=== PATIENT | female | born 1995 | race Caucasian/White ===

== ENCOUNTER 2019-08-11 14:01 | Outpatient (CLI) | payer OTHER ==
[2019-08-11 14:30] LABS: BASOPHILS % (AUTO) 0.3 %; EOSINOPHILS # (AUTO) 0.3 10^3/uL (0.0-0.7); EOSINOPHILS % (AUTO) 3.5 %; HGB - HEMOGLOBIN 13.6 g/dL (12.0-16.0); LYMPHOCYTES # (AUTO) 1.7 10^3/uL (1.5-3.5); LYMPHOCYTES % (AUTO) 20.2 %; MEAN CORPUSCULAR HEMOGLOBIN 28.6 pg (27.0-31.0); MEAN CORPUSCULAR HGB CONC 32.8 g/dL (32.0-36.0); MEAN CORPUSCULAR VOLUME 87.2 fL (81.0-99.0); MEAN PLATELET VOLUME 9.3 fL (7.9-10.8); MONOCYTES % (AUTO) 11.4 %; NEUTROPHILS # (AUTO) 5.5 10^3/uL (1.5-6.6); PLT - PLATELET COUNT 297 10^3/uL (130-450); RED BLOOD COUNT 4.76 10^6/uL (4.20-5.40); RED CELL DISTRIBUTION WIDTH 14.2 % (12.0-15.0); WHITE BLOOD COUNT 8.6 x10^3/uL (4.8-10.8)
== END 2019-08-11 14:02 | disposition home or self-care (01) ==
LOC: LAB 14:01
PROVIDERS: ATTEND Obstetrics & Gynecology
DX: Z01.812 Encounter for preprocedural laboratory examination (principal); D27.1 Benign neoplasm of left ovary
CPT/HCPCS: 36415; 85025; 86850; 86900; 86901

== ENCOUNTER 2019-08-13 12:36 | Day surgery (SDC) | payer OTHER ==
[2019-08-13] MEDS ORDERED: GLYCOPYRROLATE 1 MG/5 ML VIAL IVP ONE (12:37)
[2019-08-13] MEDS ORDERED: MIDAZOLAM 2 MG/2 ML VIAL IVP ONE (12:37)
[2019-08-13] MEDS ORDERED: DEXAMETHASONE 4 MG/ML VIAL IVP ONE (12:37)
[2019-08-13] MEDS ORDERED: NEOSTIGMINE 1 MG/1 ML 10 ML MDV IVP ONE (12:37)
[2019-08-13] MEDS ORDERED: KETOROLAC 30 MG/ML VIAL IVP ONE (12:37)
[2019-08-13] MEDS ORDERED: PROPOFOL 200 MG/20 ML VIAL IVP ONE (12:37)
[2019-08-13] MEDS ORDERED: ROCURONIUM 50 MG/5 ML VIAL IVP ONE (12:37)
[2019-08-13] MEDS ORDERED: LACTATED RINGERS 1,000 ML IV ONE ×2 (12:53→15:09)
--- NOTE | 2019-08-13 13:25 | ANESTHESIA ---
Pre-Anesthesia VS, & Labs - Diagnosis left dermoid cyst - Procedure laparoscopic left or right ovarian cystectomy Vital Signs: Temp Pulse Resp BP Pulse Ox 36.9 C 78 16 119/81 H 95 08/13/19 12:57 08/13/19 12:57 08/13/19 12:57 08/13/19 12:57 08/13/19 12:57 Height 5 ft 3 in Weight (kg) 80.6 kg - NPO >8 hours - Is Patient ?: No Home Medications and Allergies Home Medications: Ambulatory Orders Albuterol Sulfate [Albuterol Sulfate Hfa] 8.5 gm IH PRN 07/22/19 Desogestrel-Ethinyl Estradiol [Desogest-Eth Estra 0.15-0.03MG] 1 each PO 07/22/19 Fluticasone/Salmeterol [Advair 250-50 Diskus] 1 each IH BID 07/22/19 Loratadine [Claritin] 10 mg PO 07/22/19 Montelukast [Singulair] 10 mg PO QPM 07/22/19 Spironolactone 25 mg PO 07/22/19 metFORMIN [Glucophage] 500 mg PO BIDWM 07/22/19 Albuterol Sulfate [Albuterol Sulfate Hfa] 8.5 gm IH PRN 07/22/19 Desogestrel-Ethinyl Estradiol [Desogest-Eth Estra 0.15-0.03MG] 1 each PO 07/22/19 Fluticasone/Salmeterol [Advair 250-50 Diskus] 1 each IH BID 07/22/19 Loratadine [Claritin] 10 mg PO 07/22/19 Montelukast [Singulair] 10 mg PO QPM 07/22/19 Spironolactone 25 mg PO 07/22/19 metFORMIN [Glucophage] 500 mg PO BIDWM 07/22/19 Allergies/Adverse Reactions: Allergies Allergy/AdvReac Type Severity Reaction Status Date / Time amoxicillin Allergy Edema Verified 07/22/19 15:58 shellfish derived Allergy Nausea Verified 07/22/19 15:58 tree nut Allergy Itching Verified 07/22/19 15:58 Anes History & Medical History - Anesthetic History Anesthesia Complications: reports: No previous complications - Medical History Cardiovascular: reports: None Pulmonary: reports: Asthma (controlled with meds) Gastrointestinal: reports: None Urinary: reports: None Neuro: reports: None 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) Endocrine/Autoimmune: reports: Other (PCOS) Blood Disorders: reports: None Skin: reports: None Smoking Status: Former smoker (quit 3 years ago) Psychosocial: reports: Delusions, Anxiety, Cannabis (daily use), Other (PTSD) - Surgical History Eyes Ears Nose Throat (EENT): Tonsil/Adenoidectomy Gynecologic: section, Dilation and currettage Exam General: Alert, Oriented x3, Cooperative, No acute distress Dental: WNL Mouth Openin Fingerbreadth Neck Mobility: Normal Mallampati classification: I Thyromental Distance: greater than 6 cm Respiratory: Lungs clear, Normal breath sounds, No respiratory distress, No accessory muscle use Cardiovascular: Regular rate, Normal S1, Normal S2, No murmurs Mental/Cognitive Status: Alert/Oriented X3, Normal for patient Plan Anesthesia Type: General Consent for Procedure(s) Verified and Reviewed: Yes Code Status: Attempt Resuscitation ASA classification: 2-Mild systemic disease Is this case an emergency?: No
[2019-08-13 13:34] LABS: HCG UR QUAL NEGATIVE
[2019-08-13] MEDS ORDERED: ACETAMINOPHEN 1,000 MG/100 ML 100 ML IV ONE (13:37)
[2019-08-13] MEDS ORDERED: BUPIVACAINE 0.25% PF 30 ML VIAL ONE (13:58)
[2019-08-13] MEDS ORDERED: BUPIVACAINE 0.25% PF 30 ML VIAL SUBQ ONE ×2 (14:25)
[2019-08-13] MEDS ORDERED: oxyCODONE 5 MG TABLET PO PRN (16:49)
[2019-08-13] MEDS ORDERED: ONDANSETRON 4 MG/2 ML VIAL IVP PRN (16:49)
[2019-08-13] MEDS ORDERED: HYDROmorphone 0.5 MG/0.5 ML SYRINGE IVP PRN (16:49)
[2019-08-13] MEDS: fentaNYL 100 MCG/2 ML VIAL ONE ×2 (16:50→17:00)
--- NOTE | 2019-08-13 16:55 | OPERATIVE REPORT ---
Operative Report - General Procedure Date: 08/13/19 Planned Procedure: left ovarian cystectomy Pre-Op Diagnosis: left ovarian cyst Procedure Performed: left oophorectomy Post Op Diagnosis: left ovarian dermoid cyst - Procedure Note Primary Surgeon: Vidal Garcia Secondary Surgeon: Barrett Tucker Anesthesia Technique: General ET tube Pathology: left ovary IV Fluids (mL): 1,600 Estimated Blood Loss (mL): 25 Urine Output (mL): 175 Indications: left ovarian cyst Findings: Normal liver edge, grossly normal bowel. Normal uterus and bilateral fallopian tubes. Normal right ovary. Large multi-walled left ovarian cyst, firmly adhered to cyst wall. Moderate ovarian bleeding during attempt at dissection from thin friable ovarian stroma; no viable ovarian tissue identified during dissection for preservation. Cyst ruptured during extraction from abdomen in endocatch bag but with concurrent rupture of endocatch bag; contents included sebum, adipose tissue and hair. Pelvis thoroughly irrigated following cyst and bag rupture with no evidence of retained endocatch bag fragments. Complications: rupture of ovarian cyst and endocatch bag during extraction from abdomen - Other Other Information/Narrative: After informed consent was assured, the patient was taken to the operating room where anesthesia was induced. Pt was placed in low dorsal lithotomy. An exam under anesthesia revealed the findings above. The patient was prepped and draped in the usual sterile fashion. A surgical timeout was performed. A speculum was inserted into the vagina and a Hulka manipulator was placed through the cervix; the teeth of the Hulka were used to grab the anterior lip of the cervix. Gloves were changed and attention was returned to the abdomen. 0.25% Marcaine plain was injected at the umbilicus. A horizontal incision was made below the umbilicus and a trochar was inserted under direct visualization with the camera; no entry into the abdomen was identified with the 10 or 15 cm trochar, so the decision was made for Melo entry. The skin incision was extended inferiorly. The fascial corners of the incision from trochar entry were identified and grasped with Sherri clamps; the fascial incision was extended with mayos, and the apex and base of the incision were tagged with 0 vicryl. The peritoneum was identified, elevated with a tonsil clamp, and sharply incised, with entry into the peritoneum identified. The Melo trochar was placed and secured with the previously placed vicryl. The camera was introduced through the port and confirmed entry into the abdominal cavity; the abdomen was then insufflated. Inspection of the bowel immediately under the entry site revealed no injury to the viscera. Marcaine was then injected on the right lateral side 3 cm superior and medial to the anterior superior iliac spine. An incision was made and a 5 mm port was placed through the incision under visualization with the laparoscope. An additional 5 mm port was placed in a similar fashion on the left. Survey of the abdomen and pelvis noted the findings listed above. The left ovary was identified and noted to have a large multi-loculated cystic appearance. An incision was made in the ovarian stroma with the Harmonic scalpel and with blunt and sharp dissection, the ovarian stroma was peeled away from the cyst wall. The ovarian stroma was noted to be thin and friable, tearing easily during attempted dissection. One compartment of the cyst ruptured with return of straw yellow fluid during dissection. The ovarian stroma at the base of the cyst near the IP ligament was noted to have moderate slow bleeding during dissection, but no active arterial bleeding. Further sharp and blunt dissection was used to attempt to unroof the cyst from the ovarian stroma, but approximately 50% of the cyst remained firmly adhered to the ovarian stroma with no plane able to be developed. The decision was made to proceed with left oophorectomy due to a lack of apparent viable ovarian tissue and inability to remove the cyst without oophorectomy. The Ligasure energy device was used to dissect the fallopian tube away from the ovary. The IP ligament was then isolated, cauterized and transected. An 10 cm endocatch bag was introduced through the umbilical port and opened; the left ovary was placed in the bag which was closed and brought to the port site. The Melo trochar was removed. The fascial incision was extended to enable removal of the specimen. The bag was then opened to enable dissection of the cyst within the bag in order to facilitate removal. However, during attempted extraction, the cyst ruptured with return of sebum, adipose tissue and hair and the bag was also noted rupture along the bottom seam. The left ovary was removed intact from the port site. The port site was closely inspected and palpated for any evidence of retained plastic from the bag, and none was noted. The Melo trochar was then reintroduced and a thorough survey of the abdomen and pelvis was undertaken. No evidence of retained plastic from the bag was noted. The bag was reassembled on the back table, and appeared to have burst along the bottom seam with a small piece of plastic completely detached; both pieces were present on the back table and the bag appeared complete. The specimen was partly dissected on the back table and appeared consistent with a dermoid cyst with multiple loculations. The pelvis and abdomen were thoroughly irrigated. The dissection pedicle was hemostatic. The trochars were removed from the abdomen. The fascia of the umbilical port site was elevated with the previously placed vicryl suture. A running suture of 0 vicryl was used to close the fascia. The skin was then closed with a running subcuticular suture of 4-0 monocryl. The lateral incisions were each closed with single interrupted buried sutures of 4-0 monocryl. Dermabond skin adhesive was placed over each incision. The Hulka was removed from the vagina. A speculum was placed to visualized the cervix which was noted to be hemostatic. All instrument and sponge counts were correct. The patient was awoken and extubated. The pt was taken to PACU in stable condition.
[2019-08-13] MEDS: HYDROmorphone 1 MG/ML CARPUJECT ONE ×2 (17:11→17:18)
[2019-08-13] MEDS ORDERED: ONDANSETRON 4 MG/2 ML VIAL ONE (17:29)
[2019-08-13] MEDS ORDERED: oxyCODONE 5 MG TABLET ONE (17:41)
[2019-08-13 17:56] VITALS: BP 124/73
== END 2019-08-13 12:37 | disposition home or self-care (01) ==
LOC: SDS 12:36
PROVIDERS: ATTEND Obstetrics & Gynecology
PROC: 0UT14ZZ Resection of Left Ovary, Percutaneous Endoscopic Approach (ICD-10-PCS; principal; 2019-08-13 13:45)
DX: D27.1 Benign neoplasm of left ovary (principal); J45.909 Unspecified asthma, uncomplicated; Q79.69 Other Ehlers-Danlos syndromes; F43.10 Post-traumatic stress disorder, unspecified; F41.9 Anxiety disorder, unspecified; F32.9 Major depressive disorder, single episode, unspecified; Z87.891 Personal history of nicotine dependence; Z72.89 Other problems related to lifestyle; Z79.51 Long term (current) use of inhaled steroids; Z79.84 Long term (current) use of oral hypoglycemic drugs
CPT/HCPCS: 81025

== ENCOUNTER 2020-01-29 23:18 | Outpatient (CLI) | payer OTHER | END 2020-01-29 23:19 | disposition EMS.NT | LOC: EMS 23:18 | PROVIDERS: ATTEND Surgery | DX: R46.89 Other symptoms and signs involving appearance and behavior (principal); R47.81 Slurred speech; Z72.89 Other problems related to lifestyle ==

== ENCOUNTER 2020-01-30 00:32 | Emergency (ER) | payer OTHER ==
--- NOTE | 2020-01-30 00:14 | ED Physician Documentation ---
History of Present Illness - Stated complaint Stated Complaint: ETOH/OD - History obtained from History obtained from: Patient (The patient is a 24-year-old female brought in by EMS EMS reports that family found her drinking alcohol tonight and noticed that she possibly could have taken some olanzapine as well as her prazosin. The patient is tearful on arrival unable to complete an accurate history As the patient is clinically intoxicated. The patient is tearful and admits to alcohol use but denies any SI/HI or any intentional overdose.) Review of Systems Unable to obtain: Intoxicated PD PAST MEDICAL HISTORY - Present Medications Home Medications: Ambulatory Orders Medication Instructions Recorded Confirmed Albuterol Sulfate [Albuterol 8.5 gm IH PRN 07/22/19 Sulfate Hfa] Desogestrel-Ethinyl Estradiol 1 each PO 07/22/19 [Desogest-Eth Estra 0.15-0.03MG] Fluticasone/Salmeterol [Advair 1 each IH BID 07/22/19 08/13/19 250-50 Diskus] Loratadine [Claritin] 10 mg PO 07/22/19 Montelukast [Singulair] 10 mg PO QPM 07/22/19 08/13/19 Spironolactone 25 mg PO 07/22/19 metFORMIN [Glucophage] 500 mg PO BIDWM 07/22/19 08/13/19 - Allergies Allergies/Adverse Reactions: Allergies Allergy/AdvReac Type Severity Reaction Status Date / Time amoxicillin Allergy Edema Verified 01/30/20 01:03 shellfish derived Allergy Nausea Verified 01/30/20 01:03 tree nut Allergy Itching Verified 01/30/20 01:03 PD ED PE NORMAL - Vitals Vital signs reviewed: Yes - General General: Well developed/nourished, Other (Patient is tearful and most of alcohol and is clinically intoxicated) - HEENT HEENT: PERRL - Neck Neck: Supple, no meningeal sign - Cardiac Cardiac: RRR, No murmur, Strong equal pulses - Respiratory Respiratory: No respiratory distress, Clear bilaterally - Abdomen Abdomen: Normal bowel sounds, Soft, Non tender, Non distended, No organomegaly - Derm Derm: Warm and dry - Extremities Extremities: No deformity, No tenderness to palpate, Normal ROM s pain, No edema, No calf tenderness / cord - 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, No motor deficit, No sensory deficit, Normal speech - Psych Psych: Other (Tearful, depressed, crying) Results - Vitals Vitals: Vital Signs - 24 hr 01/30/20 01/30/20 01/30/20 00:32 00:52 01:22 Temperature 36.5 C Heart Rate 113 H 104 H 106 H Respiratory 34 H 16 21 Rate Blood Pressure 138/95 H 127/86 H 103/61 O2 Saturation 96 95 94 01/30/20 01/30/20 01/30/20 02:00 02:30 03:00 Temperature 36.2 C L Heart Rate 97 96 94 Respiratory 17 21 19 Rate Blood Pressure 117/70 111/69 106/69 O2 Saturation 95 96 96 01/30/20 01/30/20 01/30/20 03:30 04:00 04:30 Temperature Heart Rate 103 H 99 97 Respiratory 18 16 17 Rate Blood Pressure 102/65 104/63 104/63 O2 Saturation 97 94 94 01/30/20 01/30/20 01/30/20 05:00 05:30 06:00 Temperature Heart Rate 97 95 89 Respiratory 15 17 14 Rate Blood Pressure 97/56 L 111/64 108/64 O2 Saturation 95 95 95 Oxygen O2 Source Room air - EKG (time done) 01:04 Rate: Other (No STEMI) - Labs Labs: Laboratory Tests 01/30/20 01/30/20 01/30/20 00:40 00:40 00:40 WBC 10.0 RBC 4.69 Hgb 13.5 Hct 40.4 MCV 86.1 MCH 28.8 MCHC 33.4 RDW 13.2 Plt Count 337 MPV 9.1 Neut # (Auto) Not Reportable Lymph # (Auto) Not Reportable [place] # (Auto) Not Reportable Eos # (Auto) Not Reportable Baso # (Auto) Not Reportable Absolute Nucleated RBC Not Reportable Total Counted 100 Band Neuts % (Manual) 0 Abnorm Lymph % (Manual) 0 Nucleated RBC % Not Reportable Neutrophils # (Manual) 5.3 Lymphocytes # (Manual) 3.1 Monocytes # (Manual) 0.8 Eosinophils # (Manual) 0.8 H Basophils # (Manual) 0.0 Differential Comment MANUAL DIFFERENTIAL WBC Morphology NORMAL APPEARANCE Platelet Estimate NORMAL (130-450,000) Platelet Morphology NORMAL APPEARANCE RBC Morph Micro Appear NORMAL APPEARANCE PT 11.4 INR 1.0 APTT 27.4 Sodium 139 Potassium 2.9 L Chloride 108 Carbon Dioxide 20 L Anion Gap 11.0 BUN 7 Creatinine 0.6 Estimated GFR (MDRD) 122 Glucose 148 H Calcium 8.3 L Total Bilirubin 0.5 AST 30 ALT 42 Alkaline Phosphatase 87 Total Creatine Kinase 199 Troponin I High Sens Total Protein 7.4 Albumin 4.0 Globulin 3.4 Albumin/Globulin Ratio 1.2 Lipase 30 TSH Urine Color Urine Clarity Urine pH Ur Specific [place] Urine Protein Urine Glucose (UA) Urine Ketones Urine Occult Blood Urine Nitrite Urine Bilirubin Urine Urobilinogen Ur Leukocyte Esterase Ur Microscopic Review Urine Culture Comments Urine HCG, Qual Salicylates < 6.0 Urine Opiates Screen Ur Oxycodone Screen Urine Methadone Screen Ur Propoxyphene Screen Acetaminophen < 10 L Ur Barbiturates Screen Ur Tricyclics Screen Ur Phencyclidine Scrn Ur Amphetamine Screen U Methamphetamines Scrn U Benzodiazepines Scrn Urine Cocaine Screen U Cannabinoids Screen Ethyl Alcohol 214.3 01/30/20 01/30/20 01/30/20 00:40 00:40 01:10 WBC RBC Hgb Hct MCV MCH MCHC RDW Plt Count MPV Neut # (Auto) Lymph # (Auto) [place] # (Auto) Eos # (Auto) Baso # (Auto) Absolute Nucleated RBC Total Counted Band Neuts % (Manual) Abnorm Lymph % (Manual) Nucleated RBC % Neutrophils # (Manual) Lymphocytes # (Manual) Monocytes # (Manual) Eosinophils # (Manual) Basophils # (Manual) Differential Comment WBC Morphology Platelet Estimate Platelet Morphology RBC Morph Micro Appear PT INR APTT Sodium Potassium Chloride Carbon Dioxide Anion Gap BUN Creatinine Estimated GFR (MDRD) Glucose Calcium Total Bilirubin AST ALT Alkaline Phosphatase Total Creatine Kinase Troponin I High Sens 2.5 Total Protein Albumin Globulin Albumin/Globulin Ratio Lipase TSH 1.16 Urine Color YELLOW Urine Clarity CLEAR Urine pH 6.0 Ur Specific [place] <=1.005 Urine Protein NEGATIVE Urine Glucose (UA) NEGATIVE Urine Ketones NEGATIVE Urine Occult Blood NEGATIVE Urine Nitrite NEGATIVE Urine Bilirubin NEGATIVE Urine Urobilinogen 0.2 (NORMAL) Ur Leukocyte Esterase NEGATIVE Ur Microscopic Review NOT INDICATED Urine Culture Comments NOT INDICATED Urine HCG, Qual Salicylates Urine Opiates Screen NEGATIVE Ur Oxycodone Screen NEGATIVE Urine Methadone Screen NEGATIVE Ur Propoxyphene Screen NEGATIVE Acetaminophen Ur Barbiturates Screen NEGATIVE Ur Tricyclics Screen NEGATIVE Ur Phencyclidine Scrn NEGATIVE Ur Amphetamine Screen NEGATIVE U Methamphetamines Scrn NEGATIVE U Benzodiazepines Scrn NEGATIVE Urine Cocaine Screen NEGATIVE U Cannabinoids Screen POSITIVE H Ethyl Alcohol 01/30/20 01:10 WBC RBC Hgb Hct MCV MCH MCHC RDW Plt Count MPV Neut # (Auto) Lymph # (Auto) [place] # (Auto) Eos # (Auto) Baso # (Auto) Absolute Nucleated RBC Total Counted Band Neuts % (Manual) Abnorm Lymph % (Manual) Nucleated RBC % Neutrophils # (Manual) Lymphocytes # (Manual) Monocytes # (Manual) Eosinophils # (Manual) Basophils # (Manual) Differential Comment WBC Morphology Platelet Estimate Platelet Morphology RBC Morph Micro Appear PT INR APTT Sodium Potassium Chloride Carbon Dioxide Anion Gap BUN Creatinine Estimated GFR (MDRD) Glucose Calcium Total Bilirubin AST ALT Alkaline Phosphatase Total Creatine Kinase Troponin I High Sens Total Protein Albumin Globulin Albumin/Globulin Ratio Lipase TSH Urine Color Urine Clarity Urine pH Ur Specific [place] <1.005 Urine Protein Urine Glucose (UA) Urine Ketones Urine Occult Blood Urine Nitrite Urine Bilirubin Urine Urobilinogen Ur Leukocyte Esterase Ur Microscopic Review Urine Culture Comments Urine HCG, Qual NEGATIVE Salicylates Urine Opiates Screen Ur Oxycodone Screen Urine Methadone Screen Ur Propoxyphene Screen Acetaminophen Ur Barbiturates Screen Ur Tricyclics Screen Ur Phencyclidine Scrn Ur Amphetamine Screen U Methamphetamines Scrn U Benzodiazepines Scrn Urine Cocaine Screen U Cannabinoids Screen Ethyl Alcohol PD MEDICAL DECISION MAKING - ED course Complexity details: re-evaluated patient (06:38 Patient reevaluated at this time, she is clinically sober she denies any homicidal or suicidal thoughts or intent she has a steady gait clear speech tolerated p.o. challenge and is clinically sober to be discharged home.), considered differential (Alcohol overdose as well as possible ingestion of unknown amount of olanzapine and prazosin she has been hemodynamically stable her EKG is unremarkable. Plan is for medical clearance and then reevaluation.), d/w patient Departure - Departure Disposition: 01 Home, Self Care Clinical Impression: Alcohol intoxication Qualifiers: Complication of substance-induced condition: with unspecified complication Qualified Code(s): F10.929 - Alcohol use, unspecified with intoxication, unspecified Condition: Stable Instructions: ED Alcohol Intoxication Follow-Up: your, doctor [Other] Comments: discontinue alcohol use. Follow up with your primary care provider on Saturday.
[2020-01-30] MEDS ORDERED: SODIUM CHLORIDE 0.9% 1,000 ML IV ONE (00:38)
[2020-01-30] MEDS ORDERED: LORazepam 2 MG/ML VIAL IVP STA ×2 (00:38→02:22)
[2020-01-30 00:52] LABS: BASOPHILS % (AUTO) 0.7 %; HGB - HEMOGLOBIN 13.5 g/dL (12.0-16.0); LYMPHOCYTES % (AUTO) 28.6 %; MEAN CORPUSCULAR HEMOGLOBIN 28.8 pg (27.0-31.0); MEAN CORPUSCULAR HGB CONC 33.4 g/dL (32.0-36.0); MEAN CORPUSCULAR VOLUME 86.1 fL (81.0-99.0); MEAN PLATELET VOLUME 9.1 fL (7.9-10.8); MONOCYTES % (AUTO) 7.7 %; NEUTROPHILS % (AUTO) 51.2 %; PLT - PLATELET COUNT 337 10^3/uL (130-450); RED BLOOD COUNT 4.69 10^6/uL (4.20-5.40); RED CELL DISTRIBUTION WIDTH 13.2 % (12.0-15.0)
[2020-01-30 00:56] LABS: ABNORMAL LYMPHS % (MANUAL) 0 %; BAND NEUTROPHILS % (MANUAL) 0 %
[2020-01-30 00:59] LABS: PT - PROTHROMBIN TIME 11.4 secs (9.9-12.6)
[2020-01-30 01:06] LABS: PARTIAL THROMBOPLASTIN TIME 27.4 secs (24.9-33.3)
[2020-01-30 01:10] LABS: EOSINOPHILS # (MANUAL) 0.8 10^3/uL (0-0.7); LYMPHOCYTES # (MANUAL) 3.1 10^3/uL (1.5-3.5); LYMPHOCYTES % (MANUAL) 31 %; MONOCYTES # (MANUAL) 0.8 10^3/uL (0.0-1.0)
[2020-01-30 01:11] LABS: DIFFERENTIAL COMMENT MANUAL DIFFERENTIAL; PLATELET ESTIMATE, MANUAL NORMAL (130-450,000) (NORMAL); PLATELET MORPHOLOGY NORMAL APPEARANCE (NORMAL); RBC MORPHOLOGY (MULTIPLE) NORMAL APPEARANCE (NORMAL)
[2020-01-30 01:12] LABS: ACETAMINOPHEN < 10 ug/mL (10-30); ALBUMIN/GLOBULIN RATIO 1.2 (1.0-2.2); ALKALINE PHOSPHATASE 87 IU/L (42-121); ALT ALANINE AMINOTRANSFERASE 42 IU/L (10-60); AST ASPARTATE AMINOTRANSFERASE 30 IU/L (10-42); BILIRUBIN,TOTAL 0.5 mg/dL (0.2-1.0); BUN - BLOOD UREA NITROGEN 7 mg/dL (6-20); CALCIUM 8.3 mg/dL (8.5-10.3); CARBON DIOXIDE - CO2 20 mmol/L (21-32); CHLORIDE 108 mmol/L (101-111); CK- CREATINE KINASE 199 IU/L (22-269); CREATININE 0.6 mg/dL (0.4-1.0); GLUCOSE 148 mg/dL (70-100); LIPASE 30 U/L (22-51); SALICYLATE < 6.0 mg/dL; SODIUM 139 mmol/L (135-145); TOTAL PROTEIN 7.4 g/dL (6.7-8.2)
[2020-01-30 01:17] LABS: MUDS CUTOFF CONCENTRATIONS CUTOFF CONC BELOW:
[2020-01-30 01:22] LABS: BILIRUBIN,URINE NEGATIVE (NEGATIVE); GLUCOSE, URINE (UA) NEGATIVE (NEGATIVE); KETONES,URINE (UA) NEGATIVE (NEGATIVE); LEUKOCYTE ESTERASE, URINE NEGATIVE (NEGATIVE); NITRITE,URINE NEGATIVE (NEGATIVE); OCCULT BLOOD,URINE NEGATIVE (NEGATIVE); PROTEIN,URINE NEGATIVE (NEGATIVE); UROBILINOGEN,URINE 0.2 (NORMAL) E.U./dL (NORMAL)
[2020-01-30 01:25] LABS: CLARITY,URINE CLEAR (CLEAR)
[2020-01-30 01:26] LABS: HCG UR QUAL NEGATIVE
[2020-01-30 01:31] LABS: AMPHETAMINE SCREEN,URINE NEGATIVE (NEGATIVE); BENZODIAZEPINES SCREEN, URINE NEGATIVE (NEGATIVE); COCAINE SCREEN URINE NEGATIVE (NEGATIVE); METHADONE SCREEN, URINE NEGATIVE (NEGATIVE); METHAMPHETAMINES SCREEN, URINE NEGATIVE (NEGATIVE); OPIATE SCREEN, URINE NEGATIVE (NEGATIVE); OXYCODONE SCREEN, URINE NEGATIVE (NEGATIVE); PROPOXYPHENE SCREEN, URINE NEGATIVE (NEGATIVE); TRICYCLIC ANTIDEPRESSANT,URINE NEGATIVE (NEGATIVE)
[2020-01-30] MEDS ORDERED: ONDANSETRON 4 MG/2 ML VIAL IVP STA (02:28)
[2020-01-30 07:07] VITALS: BP 102/69
== END 2020-01-30 07:05 | disposition home or self-care (01) ==
LOC: EDUNIT# → ED 00:32
DX: F10.929 Alcohol use, unspecified with intoxication, unspecified (principal); R00.0 Tachycardia, unspecified; I45.10 Unspecified right bundle-branch block
CPT/HCPCS: 36415; 80320; 80329; 81003; 81025; 82550; 83690; 84484; 85610; 85730; 93005; 96361; 96374; 96376; 99284; 99285; J2060; 80053; 80306; 80307; 81001; 84443; 85025; 87086

== ENCOUNTER 2020-02-24 15:26 | Outpatient (CLI) | payer OTHER ==
--- NOTE | 2020-02-24 16:57 | MRI Report ---
Reason: MIGRAINE Procedure Date: 02/24/2020 Accession Number: [id number] / [id number] Procedure: MRI - Brain W/O CPT Code: Final Report FULL RESULT: PROCEDURE: Brain W/O INDICATIONS: MIGRAINE TECHNIQUE: Noncontrast axial T1 spin echo, axial T2 fast spin echo, sagittal and axial FLAIR, coronal T2 fast spin echo, axial gradient echo, axial diffusion and ADC through the brain. COMPARISON: None. FINDINGS: Image quality: Partially degraded by motion artifact. CSF Spaces: Basal cisterns are patent. No extra-axial fluid collections. Ventricles are normal in size and shape. Brain: No intracranial masses or hemorrhage. Flores/white matter interface is normal. Brainstem appears normal. Diffusion-weighted images demonstrate no acute ischemic insult. No chronic ischemic insults. Normal intravascular flow voids are present. Skull and face: Calvarium has normal marrow signal. Orbits appear normal. Sinuses: Sinuses and mastoids are clear. IMPRESSION: 1. Negative examination. 2. No explanation for migraines. 3. No acute process. No recent infarct. Reviewed by: Jossue Mims MD on 02/24/2020 4:55 PM PDT Approved by: Jossue Mims MD on 02/24/2020 4:55 PM PDT Station ID: [id number]
== END 2020-02-24 15:27 | disposition home or self-care (01) ==
LOC: DI 15:26
PROVIDERS: ATTEND Nurse Practitioner Family
DX: G43.909 Migraine, unspecified, not intractable, without status migrainosus (principal)
CPT/HCPCS: 70551

== ENCOUNTER 2020-05-14 17:20 | Emergency (ER) | payer OTHER ==
[2020-05-14 17:27] VITALS: BP 113/78
[2020-05-14] MEDS ORDERED: LIDOCAINE-EPINEPH-TETRACAINE 3 ML SYRINGE TOP STA (17:35)
--- NOTE | 2020-05-14 17:36 | ED Physician Documentation ---
PD HPI UPPER EXT INJURY - Stated complaint Stated Complaint: RT FINGER LAC - Chief complaint Chief Complaint: Laceration - History obtained from History obtained from: Patient (She cut the tip off her left pinky while slicing fruit at home about 3 hours ago.) Review of Systems Constitutional: reports: Reviewed and negative Eyes: reports: Reviewed and negative PD PAST MEDICAL HISTORY - Past Medical History Cardiovascular: None Respiratory: Asthma Neuro: None, Headaches Endocrine/Autoimmune: Other GI: None CONTACT CENTER AGENT: None : None HEENT: None Psych: Depression, Anxiety, Post traumatic stress disorder Musculoskeletal: Other Derm: None - Past Surgical History Past Surgical History: Yes /CONTACT CENTER AGENT: section, Dilation and currettage, Oophrectomy HEENT: Tonsil/Adenoidectomy - Present Medications Home Medications: Ambulatory Orders Medication Instructions Recorded Confirmed Albuterol Sulfate [Albuterol 8.5 gm IH PRN 07/22/19 Sulfate Hfa] Desogestrel-Ethinyl Estradiol 1 each PO 07/22/19 [Desogest-Eth Estra 0.15-0.03MG] Fluticasone/Salmeterol [Advair 1 each IH BID 07/22/19 08/13/19 250-50 Diskus] Loratadine [Claritin] 10 mg PO 07/22/19 Montelukast [Singulair] 10 mg PO QPM 07/22/19 08/13/19 Spironolactone 25 mg PO 07/22/19 metFORMIN [Glucophage] 500 mg PO BIDWM 07/22/19 08/13/19 Olanzapine [Zyprexa] 5 mg PO QPM 04/17/20 04/17/20 Prazosin HCl 4 mg PO QPM 04/17/20 04/17/20 Sertraline HCl 100 mg PO DAILY 04/17/20 04/17/20 - Allergies Allergies/Adverse Reactions: Allergies Allergy/AdvReac Type Severity Reaction Status Date / Time amoxicillin Allergy Edema Verified 05/14/20 17:27 shellfish derived Allergy Nausea Verified 05/14/20 17:27 tree nut Allergy Itching Verified 05/14/20 17:27 - Social History Does the pt smoke?: No Smoking Status: Former smoker Does the pt drink ETOH?: Yes Does the pt have substance abuse?: Yes - Immunizations Immunizations are current?: Yes - POLST Patient has POLST: No PD ED PE NORMAL - Vitals Vital signs reviewed: Yes - General General: Alert and oriented X 3, No acute distress - Extremities Extremities: Other (There is about a 2 mm in diameter skin avulsion on the tip of the Right small finger) - Neuro Neuro: Alert and oriented X 3, Normal speech Results - Vitals Vitals: Vital Signs - 24 hr 05/14/20 17:23 Temperature 37 C Heart Rate 102 H Respiratory 18 Rate Blood Pressure 113/78 O2 Saturation 96 Oxygen O2 Source Room air PD MEDICAL DECISION MAKING - ED course ED course: Wound was irrigated and dressed with Gelfoam and tube gauze. She was counseled on wound care. Departure - Departure Disposition: Home, Self Care Clinical Impression: Fingertip avulsion Qualifiers: Encounter type: initial encounter Qualified Code(s): S61.209A - Unspecified open wound of unspecified finger without damage to nail, initial encounter Condition: Good Record reviewed to determine appropriate education?: Yes Instructions: ED Laceration Amputation Finger Tip Open Tx Comments: Keep the current dressing on until Saturday, after that You can wash with soap and water and just a Band-Aid will suffice. Keep it moist with the prescription antibiotic ointment.
== END 2020-05-14 17:53 | disposition home or self-care (01) ==
LOC: ED 17:20
DX: S61.216A Laceration without foreign body of right little finger without damage to nail, initial encounter (principal); W27.4XXA Contact with kitchen utensil, initial encounter; Y93.G1 Activity, food preparation and clean up; Y92.009 Unspecified place in unspecified non-institutional (private) residence as the place of occurrence of the external cause; Z87.891 Personal history of nicotine dependence; J45.909 Unspecified asthma, uncomplicated
CPT/HCPCS: 99282

== ENCOUNTER 2020-08-01 08:25 | Emergency (ER) | payer OTHER ==
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
[2020-08-01] MEDS ORDERED: PROPRANOLOL 10 MG TABLET PO STA (08:45)
[2020-08-01] MEDS ORDERED: LORazepam 0.5 MG TABLET PO STA (08:45)
[2020-08-01 09:02] LABS: MUDS CUTOFF CONCENTRATIONS CUTOFF CONC BELOW:
[2020-08-01 09:10] LABS: BILIRUBIN,URINE NEGATIVE (NEGATIVE); GLUCOSE, URINE (UA) NEGATIVE (NEGATIVE); KETONES,URINE (UA) NEGATIVE (NEGATIVE); LEUKOCYTE ESTERASE, URINE NEGATIVE (NEGATIVE); NITRITE,URINE NEGATIVE (NEGATIVE); OCCULT BLOOD,URINE NEGATIVE (NEGATIVE); PROTEIN,URINE NEGATIVE (NEGATIVE); UROBILINOGEN,URINE 0.2 (NORMAL) E.U./dL (NORMAL)
[2020-08-01 09:11] LABS: CLARITY,URINE CLEAR (CLEAR)
[2020-08-01 09:12] LABS: HCG UR QUAL NEGATIVE
[2020-08-01 09:32] LABS: BASOPHILS % (AUTO) 0.5 %; EOSINOPHILS # (AUTO) 0.2 10^3/uL (0.0-0.7); HGB - HEMOGLOBIN 13.5 g/dL (12.0-16.0); LYMPHOCYTES % (AUTO) 13.2 %; MEAN CORPUSCULAR HEMOGLOBIN 28.9 pg (27.0-31.0); MEAN CORPUSCULAR HGB CONC 33.3 g/dL (32.0-36.0); MEAN CORPUSCULAR VOLUME 86.7 fL (81.0-99.0); MEAN PLATELET VOLUME 10.2 fL (7.9-10.8); MONOCYTES # (AUTO) 0.5 10^3/uL (0.0-1.0); MONOCYTES % (AUTO) 7.3 %; NEUTROPHILS # (AUTO) 5.5 10^3/uL (1.5-6.6); NEUTROPHILS % (AUTO) 75.6 %; PLT - PLATELET COUNT 301 10^3/uL (130-450); RED BLOOD COUNT 4.67 10^6/uL (4.20-5.40); WHITE BLOOD COUNT 7.3 x10^3/uL (4.8-10.8)
[2020-08-01 09:35] LABS: AMPHETAMINE SCREEN,URINE NEGATIVE (NEGATIVE); BENZODIAZEPINES SCREEN, URINE NEGATIVE (NEGATIVE); COCAINE SCREEN URINE NEGATIVE (NEGATIVE); METHADONE SCREEN, URINE NEGATIVE (NEGATIVE); METHAMPHETAMINES SCREEN, URINE NEGATIVE (NEGATIVE); OPIATE SCREEN, URINE NEGATIVE (NEGATIVE); OXYCODONE SCREEN, URINE NEGATIVE (NEGATIVE); PROPOXYPHENE SCREEN, URINE NEGATIVE (NEGATIVE); TRICYCLIC ANTIDEPRESSANT,URINE NEGATIVE (NEGATIVE)
[2020-08-01 09:44] LABS: ACETAMINOPHEN < 10 ug/mL (10-30); ALBUMIN 3.9 g/dL (3.2-5.5); ALBUMIN/GLOBULIN RATIO 1.2 (1.0-2.2); ALKALINE PHOSPHATASE 55 IU/L (42-121); ALT ALANINE AMINOTRANSFERASE 21 IU/L (10-60); AST ASPARTATE AMINOTRANSFERASE 21 IU/L (10-42); BILIRUBIN,TOTAL 0.7 mg/dL (0.2-1.0); BUN - BLOOD UREA NITROGEN 7 mg/dL (6-20); CALCIUM 8.6 mg/dL (8.5-10.3); CARBON DIOXIDE - CO2 23 mmol/L (21-32); CHLORIDE 103 mmol/L (101-111); CREATININE 0.6 mg/dL (0.4-1.0); GLUCOSE 109 mg/dL (70-100); LIPASE 25 U/L (22-51); SALICYLATE < 6.0 mg/dL; SODIUM 135 mmol/L (135-145); TOTAL PROTEIN 7.1 g/dL (6.7-8.2)
[2020-08-01 12:39] VITALS: BP 128/80
== END 2020-08-01 12:39 | disposition home or self-care (01) ==
LOC: EDUNIT# → ED 08:25
DX: F43.0 Acute stress reaction (principal); F32.9 Major depressive disorder, single episode, unspecified; F41.9 Anxiety disorder, unspecified; Z87.891 Personal history of nicotine dependence
CPT/HCPCS: 36415; 80320; 80329; 81003; 81025; 83690; 99283; A9270; 80053; 80306; 80307; 81001; 84443; 85025; 87086

== ENCOUNTER 2021-03-20 17:57 | Outpatient (CLI) | payer OTHER ==
[2021-03-20] MEDS ORDERED: MAGNESIUM SULFATE 4 GRAM 4 GM/50 ML BAG IV ONE ×2 (18:14→18:19)
[2021-03-20] MEDS ORDERED: BETAMETHASONE 30 MG/5 ML VIAL IM ONE (18:14)
[2021-03-20] MEDS ORDERED: MAGNESIUM SULFATE 2 GRAM 2 GM/50 ML BAG IV ONE (18:19)
[2021-03-20] MEDS ORDERED: BETAMETHASONE 30 MG/5 ML VIAL ONE (18:19)
[2021-03-20] MEDS ORDERED: SODIUM CHLORIDE FLUSH 0.9% 10 ML SYRINGE IVP ONE (18:19)
[2021-03-20] MEDS ORDERED: LACTATED RINGERS 1,000 ML IV ONE (18:19)
[2021-03-20] MEDS ORDERED: AZITHROMYCIN 250 MG TABLET PO STA (18:25)
[2021-03-20] MEDS ORDERED: MAGNESIUM SULFATE IN WATER 20 GM/500 ML IV.SOLN IV SCH (18:30)
[2021-03-20] MEDS ORDERED: MAGNESIUM SULFATE 2 GRAM 2 GM/50 ML BAG IV STA (18:37)
[2021-03-20] MEDS ORDERED: diphenhydrAMINE INJ 50 MG/ML VIAL IVP STA (18:37)
[2021-03-20 18:44] LABS: BASOPHILS % (AUTO) 0.3 %; EOSINOPHILS # (AUTO) 0.3 10^3/uL (0.0-0.7); LYMPHOCYTES # (AUTO) 1.6 10^3/uL (1.5-3.5); LYMPHOCYTES % (AUTO) 13.3 %; MEAN CORPUSCULAR HGB CONC 32.4 g/dL (32.0-36.0); MEAN CORPUSCULAR VOLUME 83.1 fL (81.0-99.0); MEAN PLATELET VOLUME 10.2 fL (7.9-10.8); MONOCYTES # (AUTO) 0.9 10^3/uL (0.0-1.0); MONOCYTES % (AUTO) 7.4 %; NEUTROPHILS # (AUTO) 9.4 10^3/uL (1.5-6.6); NEUTROPHILS % (AUTO) 76.3 %; PLT - PLATELET COUNT 293 10^3/uL (130-450); RED BLOOD COUNT 4.45 10^6/uL (4.20-5.40); RED CELL DISTRIBUTION WIDTH 13.6 % (12.0-15.0); WHITE BLOOD COUNT 12.3 x10^3/uL (4.8-10.8)
[2021-03-20] MEDS ORDERED: AMPICILLIN 2 GM in SODIUM CHLORIDE 0.9% MINIBAG 100 ML IV SCH (18:45)
[2021-03-20 18:54] LABS: ALBUMIN 3.2 g/dL (3.2-5.5); ALBUMIN/GLOBULIN RATIO 0.8 (1.0-2.2); BILIRUBIN,TOTAL 0.3 mg/dL (0.2-1.0); CALCIUM 8.8 mg/dL (8.5-10.3); CREATININE 0.5 mg/dL (0.4-1.0); POTASSIUM 3.4 mmol/L (3.5-5.0)
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
[2021-03-20] MEDS ORDERED: LACTATED RINGERS 1,000 ML IV SCH (19:00)
[2021-03-20 19:39] VITALS: BP 132/80
[2021-03-20 21:59] LABS: BACTERIAL VAGINOSIS DNA NEGATIVE (NEGATIVE); CANDIDA GLABRATA DNA NEGATIVE (NEGATIVE); CANDIDA GROUP DNA NEGATIVE (NEGATIVE); CANDIDA KRUSEI DNA NEGATIVE (NEGATIVE); TRICHOMONAS VAGINALIS DNA NEGATIVE (NEGATIVE)
[2021-03-20 23:01] LABS: CHLAMYDIA TRACHOMATIS DNA NEGATIVE (NEGATIVE); NEISSERIA GONORRHOEAE DNA NEGATIVE (NEGATIVE); TRICHOMONAS VAGINALIS DNA NEGATIVE (NEGATIVE)
== END 2021-03-20 19:20 | disposition short-term general hospital (02) ==
LOC: WFO 17:57 → FBP 18:02 → WFO 19:20
PROVIDERS: ATTEND Obstetrics & Gynecology
DX: O42.913 Preterm premature rupture of membranes, unspecified as to length of time between rupture and onset of labor, third trimester (principal); Z3A.29 29 weeks gestation of pregnancy; O34.33 Maternal care for cervical incompetence, third trimester; O99.891 Other specified diseases and conditions complicating pregnancy; M35.7 Hypermobility syndrome; O09.293 Supervision of pregnancy with other poor reproductive or obstetric history, third trimester; O99.513 Diseases of the respiratory system complicating pregnancy, third trimester; J45.909 Unspecified asthma, uncomplicated; O99.343 Other mental disorders complicating pregnancy, third trimester; F43.10 Post-traumatic stress disorder, unspecified; Z87.891 Personal history of nicotine dependence; Z79.899 Other long term (current) drug therapy
CPT/HCPCS: 36415; 80053; 85025; 87481; 87491; 87591; 87661; 87797; 87801; 96365; 96368; 96372; 96375; 96376; 99213; A9270; J1200; J7120; 81001; 87086; 99215; J3475

== ENCOUNTER 2022-01-13 21:15 | Emergency (ER) | payer OTHER ==
[2022-01-13 21:37] VITALS: BP 111/61
--- NOTE | 2022-01-13 21:44 | ED Physician Documentation ---
PD HPI HEENT - Stated complaint Stated Complaint: R EAR PX/SWELLING - Chief complaint Chief Complaint: Heent - History obtained from History obtained from: Patient - Additional information Additional information: Pain and swelling starting earlier today. Itchy and painful. No loss of hearing. No URI symptoms. Ear Review of Systems Constitutional: reports: Reviewed and negative Ears: reports: Ear pain, Drainage/discharge. denies: Loss of hearing Nose: reports: Reviewed and negative Cardiac: reports: Reviewed and negative PD PAST MEDICAL HISTORY - Past Medical History Past Medical History: Yes Cardiovascular: None Respiratory: Asthma Neuro: None, Headaches Endocrine/Autoimmune: Other GI: None EDUCATION TRAINER: None : None HEENT: None Psych: Depression, Anxiety, Post traumatic stress disorder Musculoskeletal: Other Derm: None - Past Surgical History Past Surgical History: Yes /EDUCATION TRAINER: section, Dilation and currettage, Oophrectomy HEENT: Tonsil/Adenoidectomy - Present Medications Home Medications: Ambulatory Orders Medication Instructions Recorded Confirmed Guanfacine HCl [Intuniv] 2 mg PO QPM 01/13/22 01/13/22 Neomycin/Polymyx/Hc Otic Drops 4 drops OT TID #1 bottle 01/13/22 [Cortisporin Ear Susp] - Allergies Allergies/Adverse Reactions: Allergies Allergy/AdvReac Type Severity Reaction Status Date / Time amoxicillin Allergy Edema Verified 01/13/22 21:37 shellfish derived Allergy Nausea Verified 01/13/22 21:37 tree nut Allergy Itching Verified 01/13/22 21:37 - Social History Does the pt smoke?: No Smoking Status: Never smoker Does the pt drink ETOH?: Yes Does the pt have substance abuse?: Yes - Immunizations Immunizations are current?: Yes - POLST Patient has POLST: No PD ED PE NORMAL - Vitals Vital signs reviewed: Yes - General General: Alert and oriented X 3, No acute distress - HEENT HEENT: Other (External otitis on the right, not swollen shut, TM appears normal. Left TM and canal appear normal.) - Derm Derm: Normal color, Warm and dry, No rash - Neuro Neuro: Alert and oriented X 3, Normal speech - Psych Psych: Normal mood, Normal affect Results - Vitals Vitals: Vital Signs - 24 hr 01/13/22 21:34 Temperature 36.4 C L Heart Rate 84 Respiratory 18 Rate Blood Pressure 111/61 O2 Saturation 97 Oxygen O2 Source Room air Departure - Departure Disposition: Home, Self Care Clinical Impression: Otitis externa Qualifiers: Otitis externa type: unspecified type Chronicity: acute Laterality: right Qualified Code(s): H60.501 - Unspecified acute noninfective otitis externa, right ear Condition: Good Record reviewed to determine appropriate education?: Yes Instructions: ED Otitis Externa Prescriptions: Neomycin/Polymyx/Hc Otic Drops [Cortisporin Ear Susp] 4 drops OT TID #1 bottle Comments: I sent your prescription electronically to the [facility] pharmacy. Recheck with your doctor towards the end of the coming week. Return for new or worsening symptoms.
[2022-01-13] MEDS: HYDROcod/ACET 5/325 Prepack 4 PO STA (21:51)
[2022-01-13] MEDS: NEOMYCIN/POLYMYX/HC OTIC DROPS RIGHTEAR STA (21:52)
== END 2022-01-13 21:56 | disposition home or self-care (01) ==
LOC: ED 21:15
DX: H60.501 Unspecified acute noninfective otitis externa, right ear (principal)
CPT/HCPCS: 99282; A9270

== ENCOUNTER 2022-01-14 21:03 | Emergency (ER) | payer OTHER ==
[2022-01-14] MEDS ORDERED: HYDROcod/ACETAM 5/325 MG TABLET PO STA (22:18)
--- NOTE | 2022-01-14 22:21 | ED Physician Documentation ---
PD HPI HEENT - Stated complaint Stated Complaint: RT EAR PX/ALEXIS - Chief complaint Chief Complaint: Heent - History obtained from History obtained from: Patient - Additional information Additional information: The patient returns to the emergency department chief complaint of right ear pain. She states that this started a few days ago but her main concern now is that it has gotten worse despite being seen yesterday and started on antibiotics. Patient states she has had occasional chills but no fevers that she knows though. No drainage from the ear. She states that the inside of the ear feels painful as well as in front of the ear and going down into the submandibular area. Patient states that she does not have any bad teeth and was just at the dentist. She has been able to take her antibiotics as directed. No other complaints at this time. Review of Systems Ten Systems: 10 systems reviewed and negative Constitutional: reports: Reviewed and negative Eyes: reports: Reviewed and negative Ears: reports: Ear pain Nose: reports: Reviewed and negative Throat: reports: Reviewed and negative Cardiac: reports: Reviewed and negative Respiratory: reports: Reviewed and negative GI: reports: Reviewed and negative : reports: Reviewed and negative Skin: reports: Reviewed and negative Musculoskeletal: reports: Reviewed and negative Neurologic: reports: Reviewed and negative Psychiatric: reports: Reviewed and negative Endocrine: reports: Reviewed and negative Immunocompromised: reports: Reviewed and negative PD PAST MEDICAL HISTORY - Past Medical History Past Medical History: Yes Cardiovascular: None Respiratory: Asthma Neuro: None, Headaches Endocrine/Autoimmune: Other GI: None 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 HEENT: None Psych: Depression, Anxiety, Post traumatic stress disorder Musculoskeletal: Other Derm: None - Past Surgical History Past Surgical History: Yes /MOTOR VEHICLE ASSEMBLY SUPERVISOR: section, Dilation and currettage, Oophrectomy HEENT: Tonsil/Adenoidectomy - Present Medications Home Medications: Ambulatory Orders Medication Instructions Recorded Confirmed Guanfacine HCl [Intuniv] 2 mg PO QPM 01/13/22 01/14/22 HYDROcod/ACETAM 5/325 [[place] 5/325] 1 - 2 tablet PO Q6H PRN #10 tablet 01/14/22 Neomycin/Polymyx/Hc Otic Drops 4 drops OT TID #10 ml 01/14/22 01/14/22 [Cortisporin Ear Susp] - Allergies Allergies/Adverse Reactions: Allergies Allergy/AdvReac Type Severity Reaction Status Date / Time amoxicillin Allergy Edema Verified 01/14/22 21:40 shellfish derived Allergy Nausea Verified 01/14/22 21:40 tree nut Allergy Itching Verified 01/14/22 21:40 - Social History Does the pt smoke?: No Smoking Status: Never smoker Does the pt drink ETOH?: Yes Does the pt have substance abuse?: Yes - Immunizations Immunizations are current?: Yes - POLST Patient has POLST: No PD ED PE NORMAL - Vitals Vital signs reviewed: Yes - General General: Alert and oriented X 3, No acute distress, Well developed/nourished - HEENT HEENT: Atraumatic, PERRL, EOMI, Moist mucous membranes, Other (Erythema with mild exudate and edema of the external auditory canal. No erythema or edema of the external ear itself. No obvious facial edema, though there is tenderness in this over the patient's TMJ and extending into the lateral most submandibular area. No acutely poor dentition.) - Respiratory Respiratory: No respiratory distress - Derm Derm: Normal color, Warm and dry, No rash - Neuro Neuro: Alert and oriented X 3, deburring technician 2-12 intact, Normal speech - Psych Psych: Normal mood, Normal affect Results - Vitals Vitals: Vital Signs - 24 hr 01/14/22 01/14/22 21:38 22:33 Temperature 37.0 C 36.9 C Heart Rate 92 88 Respiratory 18 17 Rate Blood Pressure 123/67 121/60 O2 Saturation 97 98 Oxygen O2 Source Room air PD MEDICAL DECISION MAKING - ED course Complexity details: considered differential, d/w patient ED course: I discussed with the patient that I have not noted any concerning findings on examination. She does have otitis externa and this is most likely the source of her discomfort. She does not have any masses or facial edema and no erythema to suggest a cellulitic progression. I have advised the patient to stay on her antibiotic drops. She was given only a prepack from the ED yesterday, so I have given her prescription for a little longer course of analgesia to get her through the next couple of days. We have discussed follow-up and the usual indications for return. Departure - Departure Disposition: 01 Home, Self Care Clinical Impression: Otitis externa Qualifiers: Otitis externa type: unspecified type Chronicity: acute Laterality: right Qualified Code(s): H60.501 - Unspecified acute noninfective otitis externa, right ear Condition: Stable Instructions: ED Otitis Externa Prescriptions: HYDROcod/ACETAM 5/325 [[place] 5/325] 1 - 2 tablet PO Q6H PRN #10 tablet PRN Reason: Pain Comments: Please continue your antibiotics, as directed. You most likely need more time in the treatment to allow the infection and inflammation to down. 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 pharmacy in [place]. Discharge Date/Time: 01/14/22 22:33
[2022-01-14 22:34] VITALS: BP 121/60
== END 2022-01-14 22:33 | disposition home or self-care (01) ==
LOC: ED 21:03
DX: H60.501 Unspecified acute noninfective otitis externa, right ear (principal)
CPT/HCPCS: 99282; A9270

== ENCOUNTER 2022-01-17 07:36 | Emergency (ER) | payer OTHER ==
--- NOTE | 2022-01-17 08:41 | ED Physician Documentation ---
History of Present Illness - Stated complaint Stated Complaint: R EAR PAIN - Chief complaint Chief Complaint: Heent - History obtained from History obtained from: Patient - Additonal information Additional information: The patient returns to the emergency department for the third time in the last 3 days for chief complaint of right ear and facial pain. She states that she has been taking the antibiotic drops and pain medication, but nothing seems to be making it better. She was diagnosed with otitis externa several days ago in our ED and started on Ciprodex drops. She was given as needed Vicodin. The patient returned the next day stating that she was still hurting, and was given a prescription for Vicodin with instructions to continue the antibiotics and drops as it likely had not been enough time. The patient states that she feels the pain all over in her TMJ area behind her ear and down into the top of her neck. She has noticed minimal swelling. She states it hurts to chew. The patient states her pain medications are not helping. When asked if she has had a fever, the patient states "I do not run fevers". She has had occasional chills. No dental pain. No difficulty speaking or swallowing. No drooling. No difficulty breathing. The patient has not seen her dentist. Review of Systems Ten Systems: 10 systems reviewed and negative Constitutional: reports: Chills. denies: Fever Eyes: reports: Reviewed and negative Ears: reports: Ear pain. denies: Loss of hearing, Drainage/discharge, Tinnitus/ringing Nose: reports: Reviewed and negative. denies: Rhinorrhea / runny nose, Congestion Throat: reports: Reviewed and negative. denies: Dental pain / toothache Cardiac: reports: Reviewed and negative Respiratory: reports: Reviewed and negative GI: reports: Reviewed and negative : reports: Reviewed and negative Skin: reports: Reviewed and negative Musculoskeletal: reports: Reviewed and negative Neurologic: reports: Reviewed and negative Psychiatric: reports: Reviewed and negative Endocrine: reports: Reviewed and negative Immunocompromised: reports: Reviewed and negative PD PAST MEDICAL HISTORY - Past Medical History Cardiovascular: None Respiratory: Asthma Neuro: None, Headaches Endocrine/Autoimmune: Other GI: None [employer]: None : None HEENT: None Psych: Depression, Anxiety, Post traumatic stress disorder Musculoskeletal: Other Derm: None - Past Surgical History Past Surgical History: Yes /[employer]: section, Dilation and currettage, Oophrectomy HEENT: Tonsil/Adenoidectomy - Present Medications Home Medications: Ambulatory Orders Medication Instructions Recorded Confirmed Guanfacine HCl [Intuniv] 2 mg PO QPM 01/13/22 01/14/22 HYDROcod/ACETAM 5/325 [[place] 5/325] 1 - 2 tablet PO Q6H PRN #10 tablet 01/14/22 Neomycin/Polymyx/Hc Otic Drops 4 drops OT TID #10 ml 01/14/22 01/14/22 [Cortisporin Ear Susp] Ciprofloxacin HCl [Cipro] 500 mg PO BID #14 tablet 01/17/22 HYDROcod/ACETAM 5/325 [[place] 5/325] 1 - 2 tablet PO Q6H PRN #4 tablet 01/17/22 predniSONE [Deltasone] 60 mg PO DAILY 2 Days #6 tablet 01/17/22 - Allergies Allergies/Adverse Reactions: Allergies Allergy/AdvReac Type Severity Reaction Status Date / Time amoxicillin Allergy Edema Verified 01/17/22 07:41 shellfish derived Allergy Nausea Verified 01/17/22 07:41 tree nut Allergy Itching Verified 01/17/22 07:41 - Social History Does the pt smoke?: No Smoking Status: Never smoker Does the pt drink ETOH?: Yes Does the pt have substance abuse?: Yes - Immunizations Immunizations are current?: Yes - POLST Patient has POLST: No PD ED PE NORMAL - Vitals Vital signs reviewed: Yes - General General: Alert and oriented X 3, Well developed/nourished, Other (Patient sitting up in bed and appears nontoxic. She is rocking back and forth, holding the side of her face and crying. She is accompanied by baby in a stroller.) - HEENT HEENT: Atraumatic, PERRL, EOMI, Moist mucous membranes, Dentition benign (Multiple fillings noted, but there is no dental or gingival tenderness. No soft tissue swelling of the gingiva or buccal tissue.), Other (Very slight right facial swelling compared to the left along the preauricular area, without induration, erythema, fluctuance, or mass. Very tiny, tender shotty preauricular and posterior auricular lymph nodes. No TMJ clicking/popping. No drooling) - Neck Neck: Supple, no meningeal sign, No adenopathy - Respiratory Respiratory: No respiratory distress - Derm Derm: Warm and dry - Extremities Extremities: No deformity - Neuro Neuro: Alert and oriented X 3 - Psych Psych: Normal mood, Normal affect PD ED PE EXPANDED - Free text exam Free text exam: Moderate edema of right external auditory canal with mild erythema and exudates. Tympanic membrane is visualized and normal. Results - Vitals Vitals: Vital Signs - 24 hr 01/17/22 01/17/22 07:40 10:55 Temperature 36.7 C Heart Rate 79 84 Respiratory 20 16 Rate Blood Pressure 141/86 H 145/85 H O2 Saturation 97 99 Oxygen O2 Source Room air - Labs Labs: Laboratory Tests 01/17/22 01/17/22 01/17/22 08:38 08:38 08:38 WBC 7.5 RBC 4.96 Hgb 13.8 Hct 41.4 MCV 83.5 MCH 27.8 MCHC 33.3 RDW 14.0 Plt Count 278 MPV 9.6 Neut # (Auto) 5.1 Lymph # (Auto) 1.3 L [place] # (Auto) 0.8 Eos # (Auto) 0.2 Baso # (Auto) 0.0 Absolute Nucleated RBC 0.00 Nucleated RBC % 0.0 Sodium 136 Potassium 3.7 Chloride 103 Carbon Dioxide 22 Anion Gap 11.0 BUN 9 Creatinine 0.5 Estimated GFR (MDRD) 148 Glucose 110 H Calcium 9.2 Serum HCG, Qual NEGATIVE - Rads (name of study) Maxillofacial CT with contrast Radiology: Final report received, EMP read indepedently, See rad report (Diffuse edema and inflammation of right external auditory canal, consistent with otitis externa. Periauricular lymphadenopathy with surrounding inflammation.) PD MEDICAL DECISION MAKING - ED course Complexity details: reviewed old records, reviewed results, re-evaluated patient, considered differential, d/w patient ED course: I had seen this patient on her last visit to the emergency department and the patient did not appear worse than at that time. Her physical exam findings Were still consistent with otitis externa and She had some mild periauricular lymphadenopathy, but no evidence of facial cellulitis or abscess. She did not seem to have a primary dental issue, as her teeth and gingiva were not tender and there is no swelling. At this point in time, I discussed with the patient that I we will prepare her for CT scan and we will see if there is anything else of concern in the area, though my suspicion is that the patient is having some pain from her otitis externa and associated lymphadenopathy. The patient does seem to have some stressors including a deployed spouse and a young and it is not clear if this is contributing to the patient's coping with the illness. The patient was feeling somewhat better after the dose of prednisone. I discussed with her that her CT scan confirms the diagnosis of otitis externa, and does show some lymphadenopathy/lymphadenitis. Given that the patient's symptoms are worsening after 5 days on treatment, and given that there is inflammation beyond the ear itself, I will start her on ciprofloxacin. The patient is very anxious and continually states that "it might not get better". I have assured her repeatedly that this will get better. The patient is asking for more pain medication and I will give her 1 more days worth, but have advised her that she will not be given any further narcotics from the emergency department for this problem. She will need to go to her primary care physician, as this is her third visit to the emergency department in the last 4 days for this. We have discussed appropriate indications for return, including worsening swelling, induration, erythema, high fevers, or generally feeling unwell. Departure - Departure Disposition: 01 Home, Self Care Clinical Impression: Lymphadenitis Otitis externa Qualifiers: Otitis externa type: diffuse Chronicity: acute Laterality: right Qualified Code(s): H60.311 - Diffuse otitis externa, right ear Condition: Stable Instructions: ED Otitis Externa Prescriptions: Ciprofloxacin HCl [Cipro] 500 mg PO BID #14 tablet predniSONE [Deltasone] 60 mg PO DAILY 2 Days #6 tablet HYDROcod/ACETAM 5/325 [[place] 5/325] 1 - 2 tablet PO Q6H PRN #4 tablet PRN Reason: Pain Comments: Your CT scan shows inflammation of the external ear canal, which supports the diagnosis that has already been made. There is no evidence of a pus pocket or infection extending toward your brain. You do have some inflamed lymph nodes around your ear which is not surprising, considering that your ear canal is quite inflamed. In general, oral antibiotics are not needed or recommended for this superficial infection of the ear canal; however, since your symptoms have persisted for several days at this point and because there is inflammation around your lymph nodes, we will treat you with oral ciprofloxacin. You should still continue the drops. You have been given the first dose of Cipro here in the emergency department, but should take a second dose this evening. You may use ibuprofen and the pain medicine that you were prescribed on your last visit as needed. It is not uncommon for patients to have a lot of pain with otitis externa, and this will go away as the infection resolves. Discharge Date/Time: 01/17/22 10:55
[2022-01-17 08:43] LABS: BASOPHILS % (AUTO) 0.4 %; EOSINOPHILS # (AUTO) 0.2 10^3/uL (0.0-0.7); EOSINOPHILS % (AUTO) 2.8 %; HCT - HEMATOCRIT 41.4 % (37.0-47.0); HGB - HEMOGLOBIN 13.8 g/dL (12.0-16.0); LYMPHOCYTES # (AUTO) 1.3 10^3/uL (1.5-3.5); LYMPHOCYTES % (AUTO) 16.8 %; MEAN CORPUSCULAR HEMOGLOBIN 27.8 pg (27.0-31.0); MEAN CORPUSCULAR HGB CONC 33.3 g/dL (32.0-36.0); MEAN CORPUSCULAR VOLUME 83.5 fL (81.0-99.0); MEAN PLATELET VOLUME 9.6 fL (7.9-10.8); MONOCYTES # (AUTO) 0.8 10^3/uL (0.0-1.0); MONOCYTES % (AUTO) 11.3 %; NEUTROPHILS # (AUTO) 5.1 10^3/uL (1.5-6.6); NEUTROPHILS % (AUTO) 68.4 %; PLT - PLATELET COUNT 278 10^3/uL (130-450); RED BLOOD COUNT 4.96 10^6/uL (4.20-5.40); WHITE BLOOD COUNT 7.5 x10^3/uL (4.8-10.8)
[2022-01-17 08:52] LABS: CALCIUM 9.2 mg/dL (8.5-10.3); CREATININE 0.5 mg/dL (0.4-1.0); POTASSIUM 3.7 mmol/L (3.5-5.0)
[2022-01-17] MEDS: predniSONE 20 MG TABLET PO STA (08:57)
[2022-01-17 09:06] LABS: HCG,QUALITATIVE BLOOD NEGATIVE
[2022-01-17] MEDS ORDERED: IOVERSOL 320 50 ML VIAL ONE (09:45)
[2022-01-17] MEDS: IOVERSOL 320 50 ML VIAL IVP ONE (10:06)
--- NOTE | 2022-01-17 10:30 | CT Report ---
PROCEDURE: Maxillofacial CT with contrast INDICATIONS: worsening R facial pain, now swelling CONTRAST: IV CONTRAST: Optiray 320 ml: 100 PO CONTRAST: *NO PO CONTRAST TECHNIQUE: After the administration of intravenous contrast, 3.0 mm axial sections acquired from the mid-neck to the frontal sinuses, with coronal reformatting. For radiation dose reduction, the following was use d: automated exposure control, adjustment of mA and/or kV according to patient size. COMPARISON: None. FINDINGS: Image quality: Excellent. Soft tissues: There is soft tissue induration and skin thickening involving the right external audito ry canal with surrounding subcutaneous edema consistent with external otitis. Small amount of fluid n oted in the right middle ear is well. Adjacent pre and postauricular prominent lymph nodes measure up to 7 mm in short axis. Vascular: Visualized vascular structures appear patent throughout. Bony vascular foramina and canal s appear normal. Bones: Facial bones appear intact, without fractures, erosions, or destruction. Visualized portions of the skull base and auditory canals also appear normal. Sinuses: Paranasal sinuses are aerated without fluid levels, mucosal thickening, or mucoceles. Mast oid air cells are aerated. IMPRESSION: 1. Right external otitis with surrounding soft tissue edema and reactive appearing pre and postauricu lar lymph nodes. Small amount of fluid in the right middle ear may reflect otitis media as well Reviewed by: Per Mancera MD on 01/17/2022 9:29 AM EMILY Approved by: Per Mancera MD on 01/17/2022 9:29 AM EMILY Station ID: [id number]
[2022-01-17] MEDS: CIPROFLOXACIN 250 MG TABLET PO STA (10:43)
[2022-01-17 10:57] VITALS: BP 145/85
== END 2022-01-17 10:55 | disposition home or self-care (01) ==
LOC: ED 07:36
DX: H60.311 Diffuse otitis externa, right ear (principal)
CPT/HCPCS: 36415; 70487; 80048; 84703; 85025; 99282; 99284; A9270; J7512